=== PATIENT | male | born 1960 | race Caucasian/White ===

== ENCOUNTER → 2017-03-20 | Day surgery (SDC) | payer OTHER ==
[~2017-03-20] VITALS: Ht 177.8 cm; Wt 104.3 kg
[~2017-03-20] MED LIST: ADVAIR 100-501 EACH INH; ALLOPURINOL100 M1 PO; FLONASE ALLERG9.9 ML
--- NOTE | 2017-03-23 17:49 | Operative Report ---
Operative/Inv Procedure Report Surgery Date: 03/20/17 Name of Procedure: Laparoscopic cholecystectomy Pre-Operative Diagnosis: Biliary colic Post-Operative Diagnosis: Same Estimated Blood Loss: scant Surgeon/Building Engineer: FELICITA SMALLWOOD,ALBA Gibbons PA-C Anesthesia: general endotracheal tube, block IV Fluids: 1200 mL Drains: None Specimens: Gallbladder with stones Complications: None Condition: Excellent to PACU Operative Indication: Alba is a 86-year-old gentleman with recent recurring episodes of right upper quadrant abdominal pain and imaging showing gallstones. He presents for elective cholecystectomy Operative/Procedure Note Note: The patient is taken to the operating room and placed on the operating table in supine position. Following an awake timeout and underwent uneventful induction of general endotracheal anesthesia. A tap block was then performed by the anesthesia team. Patient's arms were extended at his side. Venodyne boots in place. The abdomen was then widely clipped of hair and prepped with ChloraPrep and draped and draped in usual sterile fashion. Patient received IV Kefzol prior skin incision. Local anesthetic was then infiltrated in the supraumbilical area where a curvilinear incision was made and carried down to the fascia. Fascia was incised vertically for short distance to expose a preperitoneal fat and peritoneum. These were elevated and incised with the cautery gaining entry safely into the peritoneal cavity. A digital inspection revealed there were no adhesions in the area and a 10 mm Barron port placed. A 10 mm 0 scope was inserted and I surveyed the right upper quadrant which appeared unremarkable. We placed 25 mm working ports subcostally on the right after infiltrating local anesthetic and a third 5 mm port in the epigastric. Patient was then tipped in steep reverse Trendelenburg position and rolled to the left side. An OG tube was in place deflate the stomach. Now I swept the omentum and colon out of the right upper quadrant to visualize the gallbladder. It was grasped by its dome and delivered up towards the diaphragm. There were a few adhesions along the gallbladder surface to the periduodenal and omental tissues these were taken down with hook cautery carefully. The gallbladder was quite elongated and had an hourglass shape down by the triangle of Calot. This made it unclear as to where the actual triangle began in the neck of the gallbladder and. I used the cautery to open up the peritoneum over the area above the first waist of the hourglass and and carried at dissection up medially and laterally onto the peritoneum of the gallbladder. Began dissecting through the fatty tissue and soon realized there was nothing but further gallbladder in this lower portion of the hourglass. This meant that the Reji-Cut triangle was more medial. I opened the peritoneum over this area next and connected the openings to the prior medial and lateral incisions on the peritoneum. Traction was now placed on his lower worsening of the hourglass of the what proved to be the true Retana's pouch of the gallbladder. With traction here I began dissecting out the structures and could indeed find a cystic duct and cystic artery. The cystic duct was isolated first. It was short and but narrow enough to accommodate the 5 mm clips. Before clipping and I dissected out the artery and then placed 25 mm clips the patient side of the cystic duct one on the specimen side and divided it in the same and then did the same with the artery. This allowed the gallbladder now become more fully away from the liver bed. I was able to dissected the gallbladder off the liver bed by rocking it side to side using the cautery to the detach filmy attachments in the lower third of behind the area of the hourglass where there was a clear stenosis of the body of the gallbladder there was quite a fibrous reaction on the backside where it was adherent to the liver capsule. I did not violate the liver capsule or the lumen of the gallbladder any point but working through this the tissue was quite much more dense and eventually returned back to normal tissue has reworked towards the dome of the gallbladder. Again the gallbladder was very elongated. Prior to taking down the last attachment between liver and gallbladder respectable clips in the liver bed to be sure there was no bleeding no bile leakage and there was none. I took the final attachments down and placed a gallbladder extraction bag and removed from the umbilicus. We restored the pneumoperitoneum and I surveyed the liver bed and areas of dissection once again.. The patient was taken out of Trendelenburg position so that the irrigant could collect up over the liver and all this was aspirated out and it was clear fluid. We removed the ports under direct vision and there was no bleeding. I released the pneumo at the umbilicus and closed with 0 Vicryl sutures in [id number] fashion. Subcutaneous space was reapproximated with interrupted 3-0 Vicryl suture and then the skin closed with 40 Caprosyn subcuticular at all points. 4 x 4's without sites over Steri-Strips and Mastisol were placed. The patient tolerated the procedure well was taken to the recovery room in excellent condition with all sponge needle and she recounts confirms correct 2 completion of the case. Findings: Hourglass shaped gallbladder with fibrous reaction to liver bed in this area and difficult anatomy in the triangle related to this. This added an hour to the operative procedure and qualifies for 22 modifier. Discharge Disposition: PACU
== END ==
LOC: STS 02:13
DX: K80.10 Calculus of gallbladder with chronic cholecystitis without obstruction (principal); K82.8 Other specified diseases of gallbladder; E66.9 Obesity, unspecified; Z68.36 Body mass index [BMI] 36.0-36.9, adult; J45.909 Unspecified asthma, uncomplicated; M10.9 Gout, unspecified
CPT/HCPCS: 88304; J0690; J2250; J2405